=== PATIENT | male | born 1970 | race African-American/Black ===

== ENCOUNTER 2017-07-13 07:13 | Emergency (ER) | payer SELFPAY ==
[~2017-07-13] VITALS: Ht 185.4 cm; Wt 130.6 kg
[2017-07-13 09:45] VITALS: BP 155/98
== END 2017-07-13 10:28 | disposition home or self-care (01) ==
LOC: ER 07:13
DX: S02.40FA Zygomatic fracture, left side, initial encounter for closed fracture (principal); W01.0XXA Fall on same level from slipping, tripping and stumbling without subsequent striking against object, initial encounter; Y93.89 Activity, other specified; Y99.8 Other external cause status; Y92.89 Other specified places as the place of occurrence of the external cause
CPT/HCPCS: 70450; 70486; 94761